=== PATIENT | male | born 1965 | race Two or more races ===

== ENCOUNTER 2022-12-21 11:33 | Emergency (ER) | payer OTHER ==
[~2022-12-21] VITALS: Ht 172.7 cm; Wt 79.4 kg
== END 2022-12-21 15:38 | disposition home or self-care (01) ==
LOC: ER 11:33
DX: S09.8XXA Other specified injuries of head, initial encounter (principal); V43.52XA Car driver injured in collision with other type car in traffic accident, initial encounter; Y93.89 Activity, other specified; Y92.413 State road as the place of occurrence of the external cause; S29.8XXA Other specified injuries of thorax, initial encounter; S49.82XA Other specified injuries of left shoulder and upper arm, initial encounter